=== PATIENT | female | born 1940 | race Caucasian/White ===

== ENCOUNTER 2017-01-15 05:49 | Inpatient (IN) | payer MEDICARE ==
[~2017-01-15] VITALS: Ht 157.5 cm; Wt 47.0 kg
[~2017-01-15 05:49] MED LIST: ALEV220T14 PO; CALC600T10 PO; GABA100C4 PO; OMEP20CA2 PO; QUES4POW2 PO; VITA400C28 PO
[2017-01-15] MEDS ORDERED: ACETAMINOPHEN 1000 MG/100 ML 100 ML IV ONE (06:58)
[2017-01-15] MEDS ORDERED: MIDAZOLAM HCL 2 MG/2 ML VIAL ONE (06:58)
[2017-01-15] MEDS ORDERED: FAMOTIDINE 20 MG/2 ML VIAL ONE (06:59)
[2017-01-15] MEDS ORDERED: LACTATED RINGER'S 1000 ML IV PRN (07:00)
[2017-01-15] MEDS ORDERED: ceFAZolin 1,000 MG/NS 100 ML IV SCH ×2 (07:00)
[2017-01-15] MEDS ORDERED: SODIUM CHLORID 0.9% 500 ML IV PRN (07:00)
[2017-01-15] MEDS ORDERED: METOPROLOL TARTRATE 25 MG TAB PO PRN (07:00)
[2017-01-15] MEDS ORDERED: LACTATED RINGER'S 1000 ML INJ 1,000 ML IV SCH (07:00)
[2017-01-15] MEDS ORDERED: INSULIN HUMAN REGULAR 1,000 UNITS/10 ML VIAL SQ PRN (07:00)
[2017-01-15] MEDS ORDERED: CHLORHEXIDINE GLUCONATE 2 % 1 PACK (2 CLOTHS) TOPICAL PRN (07:00)
[2017-01-15] MEDS ORDERED: POVIDONE IODINE 5% (ANTISEPSIS KIT) 4 APPLICATIONS EACH NARE PRN (07:00)
[2017-01-15] MEDS ORDERED: VANCOMYCIN HCL 1000 MG VIAL ONE (07:07)
[2017-01-15] MEDS ORDERED: THROMBIN (TOPICAL) 5,000 UNIT VIAL ONE (07:07)
[2017-01-15] MEDS ORDERED: GENTAMICIN SULFATE 80 MG/2 ML VIAL ONE (07:08)
[2017-01-15] MEDS ORDERED: GELFOAM SIZE 100 ONE (07:08)
[2017-01-15] MEDS ORDERED: GABA100C4 PO (07:15)
[2017-01-15] MEDS ORDERED: LIDOCAINE 2%/EPINEPHrine PF 1:200,000 20ML SDV ONE (07:23)
[2017-01-15] MEDS ORDERED: RESP: ALBUTEROL 2.5 MG/3 ML NEB (PRN) ONE (08:15)
[2017-01-15 11:27] LABS: BLOOD GAS BASE EXCESS -3.6 mmol/L (-2-2); BLOOD GAS CARBOXYHEMOGLOBIN 0.6 % (0-4); BLOOD GAS HCO3 21 mmol/L (22-26); BLOOD GAS METHEMOGLOBIN 2.7 % (0-2); BLOOD GAS O2 HGB SATURATION 95 % (90-100); BLOOD GAS PCO2 39 mmHg (38-42); BLOOD GAS PO2 265 mmHg (61-120); BLOOD GAS TOTAL HGB 10.1 G/DL (12.0-16.0); TEMP CORR TO 98.6
[2017-01-15 11:28] LABS: CRITICAL VALUE NO
[2017-01-15 11:29] LABS: DRAW SITE OR GAS; OXYGEN DEVICE OR GAS; STAT YES
[2017-01-15] MEDS ORDERED: ALBUMIN HUMAN 5% 12.5 GM/250 ML BOTTLE IV ONE (11:32)
[2017-01-15] MEDS ORDERED: ceFAZolin INJ 1,000 MG VIAL ONE (11:57)
[2017-01-15] MEDS ORDERED: LACTATED RINGER'S 1000 ML INJ 1,000 ML IV ONE (12:00)
[2017-01-15] MEDS ORDERED: ePHEDrine/NS 25 MG/5 ML SYR IV ONE (12:00)
[2017-01-15] MEDS ORDERED: NORMOSOL R INJ 1,000 ML IV ONE (12:00)
[2017-01-15] MEDS ORDERED: PHENYLEPH/NS 1000 MCG/10 ML SYR IV ONE (12:00)
[2017-01-15] MEDS ORDERED: PROPOFOL 200 MG/20 ML AMP IV ONE (12:00)
[2017-01-15] MEDS ORDERED: ONDANSETRON HCL 4 MG/2 ML VIAL IV PUSH ONE (12:00)
[2017-01-15] MEDS ORDERED: NEOSTIGMINE 3 MG/3 ML SYR IV ONE (12:00)
[2017-01-15 12:42] LABS: BLOOD GAS CARBOXYHEMOGLOBIN 0.6 % (0-4); BLOOD GAS HCO3 20 mmol/L (22-26); BLOOD GAS METHEMOGLOBIN 2.8 % (0-2); BLOOD GAS O2 HGB SATURATION 95 % (90-100); BLOOD GAS OXYGEN CONTENT 14.5 Vol % (12.0-20.0); BLOOD GAS PCO2 37 mmHg (38-42); BLOOD GAS PO2 279 mmHg (61-120); BLOOD GAS TOTAL HGB 10.4 G/DL (12.0-16.0); TEMP CORR TO 98.6
[2017-01-15 12:43] LABS: CRITICAL VALUE NO; DRAW SITE ALINE; OXYGEN DEVICE OR GAS; STAT YES
[2017-01-15 13:11] LABS: HEMATOCRIT 27.2 % (35.0-46.0); REVIEW FLAG FINAL
[2017-01-15] MEDS ORDERED: BUPIVACAINE LIPOSOME PF 1.3% 20 ML VIAL P-ARTICULR ONE (13:26)
[2017-01-15 14:20] VITALS: BP 110/54; PULSE 74; RESP 10; TEMP 98.2; O2SAT 100
--- NOTE | 2017-01-15 16:01 | RADRPT ---
EXAM DATE/TIME: 01/15/2017 09:24 [place] COMPARISON: No previous studies available for comparison. INDICATIONS : Fusion L4,L5 and L3,L4 laminectomy with coflex placement. MEDICAL HISTORY : None. SURGICAL HISTORY : None. ENCOUNTER: Initial ACUITY: 1 day PAIN SCORE: Non-responsive. LOCATION: Lumbar spine. FINDINGS: There is anterior and posterior fusion with pedicle screws and interbody graft from L4-L5. CONCLUSION: 1. Postsurgical changes as above. Marcos Nair MD on January 15, 2017 at 15:59 Board Certified Radiologist. This report was verified electronically.
[2017-01-15 16:25] LABS: AUTOMATED NEUTROPHIL # 11.2 TH/MM3 (1.8-7.7); BASOPHIL % 0.2 % (0.0-2.0); HEMATOCRIT 31.5 % (35.0-46.0); HEMO FLAGS DIFF FINAL; LYMPH % 5.2 % (9.0-44.0); LYMPHOCYTE # 0.6 TH/MM3 (1.0-4.8); MEAN CELL VOLUME 90.6 FL (80.0-100.0); MEAN CORPUSCULAR HEMOGLOBIN 30.5 PG (27.0-34.0); MEAN CORPUSCULAR HGB CONC 33.7 % (32.0-36.0); MONO % 1.5 % (0.0-8.0); NEUT % 93.1 % (16.0-70.0); PLATELET COUNT 188 TH/MM3 (150-450); RED BLOOD COUNT 3.48 MIL/MM3 (4.00-5.30); RED CELL DISTRIBUTION WIDTH 13.3 % (11.6-17.2)
[2017-01-15] MEDS ORDERED: HYDROmorphone HCL PF 1 MG/ML VIAL IV PRN (16:30)
[2017-01-15] MEDS ORDERED: HYDROmorphone HCL 2 MG TAB PO PRN (16:30)
[2017-01-15] MEDS ORDERED: MORPHINE SULFATE 4 MG/ML INJ IV PRN (16:30)
[2017-01-15] MEDS ORDERED: ONDANSETRON HCL 4 MG/2 ML VIAL IV PRN (16:30)
[2017-01-15] MEDS ORDERED: SODIUM CHLORIDE 0.9% FLUSH 5 ML FLUSH IVF PRN (16:30)
[2017-01-15] MEDS ORDERED: NALOXONE HCL 0.4 MG/ML AMP IV PRN (16:30)
--- NOTE | 2017-01-15 16:31 | PD.OP ---
Operative Report Date of Surgery: Jan 15, 2017 Preoperative Diagnosis: (1) Spondylolisthesis of lumbar region (2) Lumbar canal stenosis (3) Lumbar radiculopathy (4) Low back pain 1. Grade 1 L4 5 spondylolisthesis 2. Severe L4 5 and moderate L3 4 stenosis 3. Lumbar radiculopathy 4. Chronic low back pain Postoperative Diagnosis: (1) Spondylolisthesis of lumbar region (2) Lumbar canal stenosis (3) Lumbar radiculopathy (4) Low back pain 1. Grade 1 L4 5 spondylolisthesis 2. Severe L4 5 and moderate L3 4 stenosis 3. Lumbar radiculopathy 4. Chronic low back pain Procedure: 1. Bilateral L4 5 decompressive semi-laminectomy 2. Right L4 5 facetectomy and foraminotomy 3. L4 5 discectomy, interbody fusion,PEEK cage, lamina autograft and demineralized bone matrix 4. Bilateral L3 4 decompressive semi-hemilaminectomy, medial facetectomy 5. L3 4 interspinous process decompression device placement 6. Left L4-5 posterior lateral fusion with laminar autograft and demineralized bone matrix Anesthesia: General Surgeon: Roel Alejandra Livestock Nutritionist(s): Tobin Aburto Operation and Findings: The patient was brought to the operating room and general endotracheal anesthesia induced without difficulty Lines were established per Anesthesia Sequential compression devices were in place The patient was positioned prone on the concentric Marc table with the side bolsters and all extremities appropriately padded Leads for intraoperative neuro monitoring were placed prior to positioning and a baseline study obtained Appropriate timeout procedure was performed with all personnel present and in agreement The lumbar region was shaved with clippers and sterilely prepped and draped 1% Xylocaine with epinephrine was used for local infiltration over the incision site which was made The incision was carried sharply down to the lumbodorsal fascia which was sharply incised Cali elevator was used for subperiosteal elevation of paraspinous musculature and fascia away from the lamina and spinous processes of L3 through L5 bilaterally The deep self-retaining retractor was placed The appropriate levels were verified with intraoperative C-arm The microscope was moved into place and used for the remainder of the procedure including the closure The entry point for the pedicle screws at the bilateral L4-L5 level were determined by anatomic and radiographic landmarks. The pedicle screw site was prepared with the awl followed by the pedicle finder and the tap. The ball tip probe was used to probe the pedicle screw site to ensure that there was no breakout through the pedicle. The appropriate size pedicle screw was placed at each pedicle screw site The screw placement was verified with intraoperative C-arm and intraoperative neural monitoring and felt to be satisfactory. The TPS drill with a 5 mm bone bur followed by the Kerrison rongeur was used to remove the inferior two thirds of the right L4 lamina and the superior third of the right L5 lamina. Then working across the midline, the ventral aspect of the left L4 and L5 lamina was removed. The medial aspect of the left L4 5 facet and the entire right L4 5 facet were removed. Hypertrophied ligamentum flavum was elevated away from the thecal sac and exiting nerve roots with the thin ligament dissector and resected with a 15 blade knife and Kerrison rongeur. The thecal sac and exiting nerve root were freed up from surrounding adhesions with the microdissectors and gently retracted medially revealing the underlying disc and annulus. There was mild subannular disc herniation. The annulus was incised with the 11 blade knife and discectomy performed with pituitary biopsy forceps and straight and angled curettes The endplate scrapers were used to decorticate the endplates and any remaining debris was removed with the antibiotic irrigation and suction and pituitary biopsy forceps The appropriate size PEEK cage was packed with retained lamina cancellus autograft, and a small amount of demineralized bone matrix The 12 mm lordotic cage was utilized. The cage was placed at the L4 5 level with a good fit of the cage. The placement was checked under the microscope and with intraoperative C-arm and felt to be satisfactory. The thecal sac and nerve roots were probed with the long blunt nerve hook and felt to be well decompressed The rods were placed across the pedicle screws on each side. The L5 screws were tightened first, and then the reduction device was used to reduce the L4 5 spondylolisthesis by reducing the L4 pedicle screws into the marcellus. The locking caps were secured with the torque wrench and anti-torque device The entire construct was checked with intraoperative C-arm and felt to be satisfactory The region was well irrigated with antibiotic irrigation The posterior lateral structures at the left L4-L5 levels were decorticated with the TPS drill The shavings were left in place, to which was added the remaining autograft and allograft bone which was firmly packed in place for the posterior lateral fusion. Part 2: L3 4 decompressive semi-laminectomy with interspinous process decompression device placement: At the L3 4 level, the TPS drill with a 5 mm bone bur followed by the 2 and 3 mm Kerrison rongeurs were used to remove a small amount of the inferior bilateral L3 and superior bilateral L4 lamina and a small amount of the medial facet taking care not to create any facet instability. There appeared to be at least mild instability of the bilateral L3 4 facet prior to the Coflex placement. Great care was taken to remove as little of the facet as possible during the decompression portion of the procedure. The hypertrophied ligamentum flavum was elevated away from the thecal sac with the thin ligament dissector and resected with the 15 blade knife and the Kerrison rongeur out to the level of the deep lateral recess to completely decompress the thecal sac and exiting nerve roots. The exiting nerve roots were followed to the level of the medial pedicle to ensure that they were well decompressed. The interspinous ligament at the L3 4 level was very deteriorated, with the spinous processes mostly [id number]. The Adan Duvall rongeur was used to remove the remaining interspinous ligament and decorticate the inferior L3 and superior L4 spinous process edge. The TPS drill was used to flatten out the dorsal aspect of the L3 and L4 lamina, taking care not to compromise the integrity of the lamina. The 10 mm Coflex trial was then placed and appeared to give good support to the spinous processes and facets. Any remaining soft tissue along the interspinous region and epidural space and interlaminar region was carefully removed to provide a clean tract for the Coflex device. The 10 mm Coflex device was then placed at the L3 4 level with the anterior aspect of the device placed as anterior as possible without compromising the thecal sac. The side wings were crimped at the L3 and L4 levels to secure the device. The placement was checked with intraoperative C-arm and felt to be satisfactory. A blunt hook was passed beneath the anterior aspect of the Coflex device to make certain that there was no compromise of the spinal canal. There appeared to be excellent support of the lamina and facet after the device was placed. The nerve roots appeared well decompressed at the end of the procedure. No spinal fluid leakage was encountered. The disc and annulus was visualized to make sure that there was no significant disc displacement or herniation. Bleeding was carefully controlled with the bipolar forceps. The 7 mm flat fluted drain was left in place at the operative side and brought out through a incision at the upper lumbar region and secured to the skin with nylon suture and attached to sterile suction bleeding was carefully controlled with the bipolar forceps The closure was performed with 0 Vicryl interrupted for the deep and superficial fascia, with 3-0 Vicryl for the subcutaneous closure and 4-0 Vicryl running subcuticular closure. Dressings sterile Mastisol, Steri-Strips and Primapore was placed The patient was turned into supine position and taken to recovery room in stable condition All counts were correct at the end of the case Estimated blood loss was 600 cc No specimen was sent to pathology Neuro monitoring was stable during the procedure Roel Alejandra MD Jan 15, 2017 16:31
[2017-01-15] MEDS ORDERED: *morphine SULFATE 8 MG/ML PERIprocedure ONLY ONE (16:52)
[2017-01-15 17:32] LABS: BICARBONATE 24.6 MEQ/L (21.0-32.0)
[2017-01-15] MEDS: D5-1/2 NS + KCL 20 MEQ INJ 1,000 ML IV SCH (17:45)
[2017-01-15] MEDS: SODIUM CHLORIDE 0.9% FLUSH 5 ML FLUSH IVF SCH (21:00)
[2017-01-15] MEDS ORDERED: DO NOT ADM ANY ANTICOAGULANT DRUGS PRN (21:15)
[2017-01-15 21:53] VITALS: O2SAT 99
[2017-01-15] MEDS: GABAPENTIN 100 MG CAP PO SCH (21:56)
[2017-01-15] MEDS: DOCUSATE SODIUM 100 MG CAP PO SCH (21:56)
[2017-01-15 21:57] VITALS: BP 134/60; PULSE 76; RESP 16; TEMP 97.8; O2SAT 97
[2017-01-16] VITALS (7 sets, daily range): BP systolic 94–129; BP diastolic 47–64; PULSE 77–103; RESP 16–20; TEMP 97.3–99.2; O2SAT 93–96
[2017-01-16] MEDS: D5-1/2 NS + KCL 20 MEQ INJ 1,000 ML IV SCH ×2 (03:14→13:12)
[2017-01-16] MEDS: CHOLESTYRAMINE 4 GM PACKET PO SCH (08:32)
[2017-01-16] MEDS: CHOLECALCIFEROL (VIT D3) 400 UNIT TAB PO SCH (08:32)
[2017-01-16] MEDS: PANTOPRAZOLE SOD 20 MG DELAYED RELEASE TAB PO SCH (08:33)
[2017-01-16] MEDS: CALCIUM/VITAMIN D 250 MG/125 U TAB PO SCH (08:33)
[2017-01-16] MEDS: DOCUSATE SODIUM 100 MG CAP PO SCH ×2 (08:33→21:35)
[2017-01-16] MEDS: SODIUM CHLORIDE 0.9% FLUSH 5 ML FLUSH IVF SCH ×2 (08:34→21:00)
[2017-01-16] MEDS ORDERED: PANTOPRAZOLE SODIUM 40 MG VIAL IVP SCH (09:00)
[2017-01-16 10:11] LABS: AUTOMATED NEUTROPHIL # 9.9 TH/MM3 (1.8-7.7); BASOPHIL % 0.4 % (0.0-2.0); EOSINOPHIL % 0.2 % (0.0-4.0); HEMATOCRIT 31.4 % (35.0-46.0); HEMO FLAGS DIFF FINAL; LYMPH % 9.3 % (9.0-44.0); LYMPHOCYTE # 1.1 TH/MM3 (1.0-4.8); MEAN CELL VOLUME 91.3 FL (80.0-100.0); MEAN CORPUSCULAR HEMOGLOBIN 30.7 PG (27.0-34.0); MEAN CORPUSCULAR HGB CONC 33.7 % (32.0-36.0); MONO % 5.5 % (0.0-8.0); NEUT % 84.6 % (16.0-70.0); PLATELET COUNT 191 TH/MM3 (150-450); RED BLOOD COUNT 3.44 MIL/MM3 (4.00-5.30); RED CELL DISTRIBUTION WIDTH 13.5 % (11.6-17.2); WHITE BLOOD COUNT 11.7 TH/MM3 (4.0-11.0)
[2017-01-16 10:35] LABS: BICARBONATE 26.3 MEQ/L (21.0-32.0); POTASSIUM 3.9 MEQ/L (3.5-5.1)
[2017-01-16 17:54] LABS: APTT (PATIENT) 23.6 SEC (24.3-30.1); PROTHROMBIN TIME - PATIENT 10.7 SEC (9.8-11.6)
[2017-01-16] MEDS: GABAPENTIN 100 MG CAP PO SCH (21:34)
--- NOTE | 2017-01-16 21:50 | HHI.NSPN ---
History Chief Complaint: back pain Interval History Status post L4 5 laminectomy interbody fusion with L3 4 laminectomy interspinous process decompression of eyes placement 01/15/17. Today complains of moderate low back pain. No significant lower extremity pain weakness or numbness aside from pre-existing weakness right foot and ankle. Exam Results Vital Signs Date Time Temp Pulse Resp B/P (MAP) Pulse Ox O2 Delivery O2 Flow Rate FiO2 01/16/17 18:59 98.9 103 20 102/59 (73) 94 01/15/17 21:53 Nasal Cannula 2.00 Intake and Output 01/16/17 01/16/17 01/16/17 07:59 15:59 23:59 Intake Total 360 ml Output Total 740 ml 80 ml 860 ml Balance -740 ml -80 ml -500 ml Physical Examination Respirations clear to auscultation Cardiac regular without murmur Abdomen soft nontender No extremity edema Sensation intact light touch lower extremities Strength normal major flexion and extension groups lower extremities except for pre-existing weakness primarily right tibialis anterior, peroneus longus greater than gastrocsoleus Lab, Micro, Other Results Laboratory Tests Test 01/16/17 09:15 01/16/17 16:47 White Blood Count 11.7 TH/MM3 Red Blood Count 3.44 MIL/MM3 Hemoglobin 10.6 GM/DL Hematocrit 31.4 % Mean Corpuscular Volume 91.3 FL Mean Corpuscular Hemoglobin 30.7 PG Mean Corpuscular Hemoglobin Concent 33.7 % Red Cell Distribution Width 13.5 % Platelet Count 191 TH/MM3 Mean Platelet Volume 8.1 FL Neutrophils (%) (Auto) 84.6 % Lymphocytes (%) (Auto) 9.3 % Monocytes (%) (Auto) 5.5 % Eosinophils (%) (Auto) 0.2 % Basophils (%) (Auto) 0.4 % Neutrophils # (Auto) 9.9 TH/MM3 Lymphocytes # (Auto) 1.1 TH/MM3 Monocytes # (Auto) 0.6 TH/MM3 Eosinophils # (Auto) 0.0 TH/MM3 Basophils # (Auto) 0.0 TH/MM3 CBC Comment DIFF FINAL Differential Comment Blood Urea Nitrogen 14 MG/DL Creatinine 0.86 MG/DL Random Glucose 152 MG/DL Calcium Level 7.5 MG/DL Sodium Level 139 MEQ/L Potassium Level 3.9 MEQ/L Chloride Level 104 MEQ/L Carbon Dioxide Level 26.3 MEQ/L Anion Gap 9 MEQ/L Estimat Glomerular Filtration Rate 64 ML/MIN Prothrombin Time 10.7 SEC Prothromb Time International Ratio 1.0 RATIO Activated Partial Thromboplast Time 23.6 SEC Medical Decision Making Impression and Plan Impression: Doing well following L3 4, L4 5 decompressive semi-laminectomy, L3 4 interspinous process decompression, L4 5 interbody fusion. Previous lower extremity pain symptoms improved. Plan: Discussed with patient Still with moderate drain output-will continue Discontinue Chan catheter. Bladder scan for post void residual Discontinue IV fluids Increase activity Discussed with case management Home health care versus inpatient rehabilitation at discharge Roel Alejandra MD Jan 16, 2017 21:50
[2017-01-17 00:55] VITALS: BP 106/52; PULSE 92; RESP 16; TEMP 98.7; O2SAT 93
[2017-01-17 06:06] VITALS: BP 115/58; PULSE 89; RESP 18; TEMP 98.5; O2SAT 96
[2017-01-17 08:00] VITALS: BP 126/60; PULSE 92; RESP 18; TEMP 100.1; O2SAT 95
[2017-01-17] MEDS: SODIUM CHLORIDE 0.9% FLUSH 5 ML FLUSH IVF SCH (09:00)
[2017-01-17] MEDS: CHOLESTYRAMINE 4 GM PACKET PO SCH (10:10)
[2017-01-17] MEDS: CALCIUM/VITAMIN D 250 MG/125 U TAB PO SCH (10:12)
[2017-01-17] MEDS: DOCUSATE SODIUM 100 MG CAP PO SCH (10:12)
[2017-01-17] MEDS: CHOLECALCIFEROL (VIT D3) 400 UNIT TAB PO SCH (10:12)
[2017-01-17] MEDS: PANTOPRAZOLE SOD 20 MG DELAYED RELEASE TAB PO SCH (10:12)
[2017-01-17] MEDS: oxyCODONE/ACETAMINOPHEN 10 MG/325 MG TAB PO PRN ×2 (10:17→15:24)
[2017-01-17 12:39] VITALS: BP 143/63; PULSE 84; RESP 18; TEMP 97.8; O2SAT 95
--- NOTE | 2017-01-17 14:49 | HHI.NSPN ---
(Jackson Maldonado) History Chief Complaint: Some pain to the back (Jackson Maldonado) Interval History 01/16: Status post L4 5 laminectomy interbody fusion with L3 4 laminectomy interspinous process decompression of eyes placement 01/15/17. Today complains of moderate low back pain. No significant lower extremity pain weakness or numbness aside from pre-existing weakness right foot and ankle. 01/17: The patient is up and ambulating in the room. She states that she does have some mild pain to the back and that the pain to the lower extremities has resolved. (Jackson Maldonado) System Review Comments Constitutional: Patient denies any fever or chills. HEENT: Patient denies any visual or hearing difficulty. Respiratory: Patient denies any shortness of breath or productive cough. Cardiovascular: Patient denies any chest pain, palpitations or irregular heartbeat. Gastrointestinal: Patient denies any abdominal wall, nausea, vomiting or incontinence of stool. Genitourinary: Patient denies any incontinence of urine. Musculoskeletal: Patient has some mild pain to the back at the surgical site. She denies any pain to the extremities. Neurologic: Patient denies any headache, dizziness, numbness or tingling. (Jackson Maldonado) Exam Results 01/15/17 01/15/17 01/16/17 01/16/17 01/17/17 01/17/17 05:59 17:59 05:59 17:59 05:59 17:59 Intake Total 4640 ml 150 ml 360 ml Output Total 1600 ml 1620 ml 170 ml 1030 ml 20 ml Balance 3040 ml -1470 ml -170 ml -670 ml -20 ml Intake Oral 50 ml 360 ml IV Total 100 ml 100 ml Albumin 500 ml Packed Cells 500 ml Blood Product IV Normal Saline Flush 40 ml Other 3500 ml Output Urine Total 1000 ml 1450 ml 950 ml Drainage Total 170 ml 170 ml 80 ml 20 ml Estimated Blood Loss 600 ml # Voids 2 1 # Bowel Movements 0 1 0 Vital Signs Date Time Temp Pulse Resp B/P (MAP) Pulse Ox O2 Delivery O2 Flow Rate FiO2 01/17/17 12:39 97.8 84 18 143/63 (89) 95 01/17/17 08:00 100.1 92 18 126/60 (82) 95 01/17/17 06:06 98.5 89 18 115/58 (77) 96 01/17/17 00:55 98.7 92 16 106/52 (70) 93 01/16/17 21:41 98.0 102 16 129/59 (82) 95 01/16/17 21:28 21 01/16/17 18:59 98.9 103 20 102/59 (73) 94 01/16/17 14:17 93 01/16/17 12:00 99.2 102 20 123/55 (77) 94 01/16/17 08:00 97.3 81 20 94/47 (63) 94 01/16/17 06:36 97.9 77 18 01/16/17 02:00 97.4 94 18 107/64 (78) 96 01/15/17 21:57 97.8 76 16 134/60 (84) 97 01/15/17 21:53 99 Nasal Cannula 2.00 01/15/17 18:26 97.5 73 13 144/67 (92) 100 Nasal Cannula 2 01/15/17 18:00 70 13 137/67 (90) 100 Nasal Cannula 2 01/15/17 17:30 65 12 122/61 (81) 100 Nasal Cannula 2 132/53 (79) 01/15/17 17:00 75 12 133/69 (90) 99 Nasal Cannula 2 139/61 (87) 01/15/17 16:45 68 10 137/71 (93) 100 Nasal Cannula 2 148/60 (89) 01/15/17 16:30 68 10 138/70 (92) 100 Nasal Cannula 2 146/61 (89) 01/15/17 16:15 69 12 137/70 (92) 100 Nasal Cannula 2 142/59 (86) 01/15/17 16:00 69 12 134/68 (90) 100 Nasal Cannula 2 139/58 (85) 01/15/17 15:45 79 16 126/62 (83) 100 Nasal Cannula 2 132/55 (80) 01/15/17 15:30 78 13 125/55 (78) 100 Nasal Cannula 2 126/51 (76) 9/5/17 15:15 97.6 90 16 137/63 (87) 100 Nasal Cannula 3 01/15/17 14:20 98.2 74 10 110/54 100 01/15/17 07:23 97.8 70 16 129/61 (83) 99 (Jackson Maldonado) Physical Examination GENERAL: The patient is up and ambulating in the room visiting w/a friend. She readily interacts and her affect is normal. NAD. SKIN: Warm, dry & intact except for intact dressing over a lumbar surgical site , sanguinous drainage noted on dressing, NURA drain to bulb suction w/ serosanguinous drainage. No rashes, ulcerations or other lesions noted. HEENT: Normocephalic, atraumatic. NECK: Full active ROM w/o pain, no JVD, trachea midline. CARDIOVASCULAR: S1S2 w/RRR w/o M/G/R, radial & pedal pulses 2+ bilaterally, cap refill < 2 sec, no pedal edema. RESPIRATORY: CTAB w/o W/R/R, equal excursion, nonlaboured, on RA. GASTROINTESTINAL: Abdomen soft, nontender, positive bowel sounds. MUSCULOSKELETAL: BARRERA w/o difficulty, no evident deformity or clubbing, intact post-op dressing to lumbar spine mildly TTP to midline and right paraspinal area. NEUROLOGICAL: AAOx3. Speech clear & appropriate. Sensation intact to light touch to all extremities. Strength normal major flexion and extension groups lower extremities except for pre-existing weakness primarily right tibialis anterior, peroneus longus greater than gastrocsoleus. (Jackson Maldonado) Medical Decision Making Impression and Plan Impression: The patient continues to do well following her L3-4, L4-5 decompressive semi- laminectomy w/L3-4 interspinous process decompression & L4-5 interbody fusion. Still w/o pain to the lower extremities. Plan: Discussed plan of care with patient & friend. Discussed plan of care with Case Management & Nursing. Will d/c NURA drain. Will d/c patient home w/home health. (Jackson Maldonado) Attending Statement The exam, history, and the medical decision-making described in the above note were completed with the assistance of the mid-level provider. I reviewed and agree with the findings presented. I attest that I had a [id number] encounter with the patient on the same day, and personally performed and documented my assessment and findings in the medical record. No significant residual pain postoperatively. Doing well with therapy Plan discharge home with home health care (Roel Alejandra MD) Jackson Maldonado Jan 17, 2017 14:49 Roel Alejandra MD Feb 18, 2017 06:50
--- NOTE | 2017-01-17 14:51 | HHI.FF ---
Face to Face Verification Diagnosis: (1) Low back pain (2) Lumbar radiculopathy (3) Lumbar canal stenosis (4) Spondylolisthesis of lumbar region Physical Therapy Order: Evaluate and Treat, Improve ambulation, Strength and gait training Occupational Therapy Order: Evaluate and Treat Home Health Nursing Order: Medical education Wound care and dressing changes I have seen patient Kandis Warner on 01/17/17. My clinical findings support the need for the requested home health care services because: Deconditioned w/ increased weakness High risk of falls I certify that my clinical findings support that this patient is homebound because: Post-op weakness Unsteady gait/balance Unsafe to leave home unassisted Jackson Maldonado Jan 17, 2017 14:51 Roel Alejandra MD Feb 18, 2017 06:49
--- NOTE | 2017-01-17 14:55 | HHI.DCPOC ---
Discharge Care Plan Diagnosis: (1) Low back pain (2) Lumbar radiculopathy (3) Lumbar canal stenosis (4) Spondylolisthesis of lumbar region Your Health Problems Are: Difficulty with ADL Incision/Drains Exercise Tolerance Goals to Promote Your Health * To prevent worsening of your condition and complications * To maintain your health at the optimal level Wear the LSO brace when out of bed. No bending over, reaching, twisting, pushing, pulling or lifting. No driving until cleared in follow up. Log roll when getting in and out of bed. Avoid any products containing aspirin or NSAIDs (ibuprofen, naproxen, etc.). Keep the dressing on the back for the next 8 days, then the dressing may come off. You may shower once the surgical incision has healed. Directions to Meet Your Goals Take your medications as prescribed Avoid any products containing aspirin or NSAIDs (ibuprofen, naproxen, etc.). Follow your dietary instruction Follow activity as directed Wear the LSO brace when out of bed. No bending over, reaching, twisting, pushing, pulling or lifting. No driving until cleared in follow up. Log roll when getting in and out of bed. Keep your appointments as scheduled Take your immunizations and boosters as scheduled If your symptoms worsen call your PCP, if no PCP go to Urgent Care Center or Emergency Room Smoking is Dangerous to Your Health. Avoid second hand smoke Call the 24-hour hour crisis hotline for domestic abuse at Jackson Maldonado Jan 17, 2017 14:55 Roel Alejandra MD Feb 18, 2017 06:51
--- NOTE | 2017-01-17 14:59 | HHI.DS ---
Jackson MaldonadoBarb PRUITT 01/17/17 1459: Discharge Summary Admission Date Jan 15, 2017 at 05:49 Discharge Date: Jan 17, 2017 Admitting Diagnosis (1) Low back pain Diagnosis: Principal ICD Code: M54.5 - Low back pain (2) Lumbar radiculopathy Diagnosis: Secondary ICD Code: M54.16 - Radiculopathy, lumbar region (3) Lumbar canal stenosis Diagnosis: Secondary ICD Code: M48.06 - Spinal stenosis, lumbar region (4) Spondylolisthesis of lumbar region Diagnosis: Secondary ICD Code: M43.16 - Spondylolisthesis, lumbar region Procedures : 1. Bilateral L4 5 decompressive semi-laminectomy 2. Right L4 5 facetectomy and foraminotomy 3. L4 5 discectomy, interbody fusion,PEEK cage, lamina autograft and demineralized bone matrix 4. Bilateral L3 4 decompressive semi-hemilaminectomy, medial facetectomy 5. L3 4 interspinous process decompression device placement 6. Left L4-5 posterior lateral fusion with laminar autograft and demineralized bone matrix CBC/BMP: 01/16/17 0915 01/16/17 0915 Significant Findings Laboratory Tests Test 01/15/17 11:11 01/15/17 12:31 01/15/17 13:00 01/15/17 15:30 Blood Gas HCO3 21 mmol/L (22-26) 20 mmol/L (22-26) Blood Gas Base Excess -3.6 mmol/L (-2-2) -4.0 mmol/L (-2-2) Arterial Blood pH 7.35 (7.380-7.420) 7.36 (7.380-7.420) Arterial Blood Partial Pressure O2 265 mmHg (61-120) 279 mmHg (61-120) Arterial Blood Methemoglobin 2.7 % (0-2) 2.8 % (0-2) Blood Gas Hemoglobin 10.1 G/DL (12.0-16.0) 10.4 G/DL (12.0-16.0) Arterial Blood Partial Pressure CO2 37 mmHg (38-42) Hemoglobin 9.1 GM/DL (11.6-15.3) 10.6 GM/DL (11.6-15.3) Hematocrit 27.2 % (35.0-46.0) 31.5 % (35.0-46.0) White Blood Count 12.0 TH/MM3 (4.0-11.0) Red Blood Count 3.48 MIL/MM3 (4.00-5.30) Neutrophils (%) (Auto) 93.1 % (16.0-70.0) Lymphocytes (%) (Auto) 5.2 % (9.0-44.0) Neutrophils # (Auto) 11.2 TH/MM3 (1.8-7.7) Lymphocytes # (Auto) 0.6 TH/MM3 (1.0-4.8) Random Glucose 113 MG/DL (74-106) Total Protein 5.4 GM/DL (6.4-8.2) Calcium Level 7.1 MG/DL (8.5-10.1) Estimat Glomerular Filtration Rate 75 ML/MIN (>89) Protein Corrected Calcium 8.0 MG/DL (8.5-10.1) Test 01/16/17 09:15 01/16/17 16:47 White Blood Count 11.7 TH/MM3 (4.0-11.0) Red Blood Count 3.44 MIL/MM3 (4.00-5.30) Hemoglobin 10.6 GM/DL (11.6-15.3) Hematocrit 31.4 % (35.0-46.0) Neutrophils (%) (Auto) 84.6 % (16.0-70.0) Neutrophils # (Auto) 9.9 TH/MM3 (1.8-7.7) Random Glucose 152 MG/DL (74-106) Calcium Level 7.5 MG/DL (8.5-10.1) Estimat Glomerular Filtration Rate 64 ML/MIN (>89) Activated Partial Thromboplast Time 23.6 SEC (24.3-30.1) Hospital Course 01/16: Status post L4 5 laminectomy interbody fusion with L3 4 laminectomy interspinous process decompression of eyes placement 01/15/17. Today complains of moderate low back pain. No significant lower extremity pain weakness or numbness aside from pre-existing weakness right foot and ankle. 01/17: The patient is up and ambulating in the room. She states that she does have some mild pain to the back and that the pain to the lower extremities has resolved. Pt Condition on Discharge: Good Discharge Disposition: Disch w/ Home Health Serv Discharge Instructions DIET: Follow Instructions for: As Tolerated, No Restrictions ACTIVITIES You can perform: Weight Bearing As Donny, Shower Only-No Bath Activities to Avoid: Lifting/Bending, Strenuous Activity, Bathing, Driving ADDITIONAL Activity Instructio: Wear the LSO brace when out of bed. Log roll when getting in and out of bed. Additional Information Avoid any products containing aspirin or NSAIDs (ibuprofen, naproxen, etc.). Keep the dressing on the back for the next 8 days, then the dressing may come off. You may shower once the surgical incision has healed. Roel Alejandra MD 02/18/17 0651: Discharge Summary CBC/BMP: 01/16/17 0915 01/16/17 0915 Jackson Maldonado Jan 17, 2017 14:59 Roel Alejandra MD Feb 18, 2017 06:51
[2017-01-17] MEDS ORDERED: DOCU1CAP39 PO (15:14)
[2017-01-17] MEDS ORDERED: OXYC1TAB36 PO (15:14)
[2017-01-17 16:00] VITALS: BP 124/58; PULSE 89; RESP 18; TEMP 98.8; O2SAT 97
== END 2017-01-17 16:26 | disposition home health service (06) | DRG 460 ==
LOC: HSDI 05:49 → N05A 18:59
PROVIDERS: ADMIT Neurological Surgery; ATTEND Neurological Surgery
PROC: 0ST20ZZ Resection of Lumbar Vertebral Disc, Open Approach (ICD-10-PCS; 2017-01-15)
PROC: 01NB0ZZ Release Lumbar Nerve, Open Approach (ICD-10-PCS; 2017-01-15)
PROC: 0T9B70Z Drainage of Bladder with Drainage Device, Via Natural or Artificial Opening (ICD-10-PCS; 2017-01-15)
PROC: 30233N1 Transfusion of Nonautologous Red Blood Cells into Peripheral Vein, Percutaneous Approach (ICD-10-PCS; 2017-01-15)
PROC: 0SG00A1 (ICD-10-PCS; principal; 2017-01-15 08:30)
DX: M43.16 Spondylolisthesis, lumbar region (principal); G89.29 Other chronic pain; M48.06 Spinal stenosis, lumbar region; M54.16 Radiculopathy, lumbar region
CPT/HCPCS: 36430; 72100; 76000; 80048; 82805; 84155; 85014; 85018; 85025; 85610; 85730; 86077; 86850; 86870; 86900; 86901; 86902; 86920; 86922; 94150; 94664; C1713; J0131; J0690; J1580; J2250; J2270; J2370; J2405; J2710; J3010; J3370; J3480; J7120; J7613; L0484; P9016; P9045